=== PATIENT | female | born 1965 | race Caucasian/White ===

== ENCOUNTER → 2023-08-17 11:22 | Outpatient (CLI) | payer MEDICAID, SELFPAY ==
--- NOTE | 2023-08-17 15:15 | DI.RAD_ITS ---
Exam(s) XR SHOULDER LT COMPLETE 2+V EXAM: XR SHOULDER LT COMPLETE 2+V CLINICAL HISTORY: fall, neck pain W19.XXXA. TECHNIQUE: 2D digital imaging was performed. COMPARISON: No exams were available for comparison FINDINGS: Five views. No evidence of fracture or dislocation nor diminution of the subacromial space. No abnormal soft tis timmy calcifications. No degenerative changes. Bone density normal. No osseous lesions. Ipsilateral clavicle appears intact. IMPRESSION: No significant osseous findings in the left shoulder. DATA REPOSITORY: RADIATION DOSE DELIVERED:
--- NOTE | 2023-08-17 15:15 | DI.RAD_ITS ---
Exam(s) XR CERVICAL SPINE COMP 4-5V EXAM: XR CERVICAL SPINE COMP 4-5V CLINICAL HISTORY: neck pain, fall Z19.XXXA FALL. TECHNIQUE: 2D digital imaging was performed. COMPARISON: No exams were available for comparison FINDINGS: Six views. No evidence of fracture, listhesis, nor offset of the spinal laminar line. There is multilevel disc space narrowing at C4-5, C5-6, and C6-7 levels. Mild facet joint degenerative changes. No facet mal alignment. On the lateral view there is a triangular osteophytic density off the posterior aspect of the C7 spin ous process which measures 10 x 6 mm, difficult to determine acute gamaliel-geomorphology teacher's fracture versus is chronic finding at this level in the supraspinous ligament. There are no cervical ribs. IMPRESSION: Multilevel chronic degenerative disc disease. 10 x 6 mm osteophytic density seen posteriorly, posterior to the spinous process of C7. Either gamaliel- geomorphology teacher's fracture or chronic calcification in the supraspinous ligament at this level. Correlation with site of tenderness is recommended. DATA REPOSITORY: RADIATION DOSE DELIVERED:
--- NOTE | 2023-08-17 15:15 | DI.RAD_ITS ---
Exam(s) XR FINGER RT LITTLE EXAM: XR FINGER RT LITTLE CLINICAL HISTORY: finger pain, base of digit W19.XXXA FALL. TECHNIQUE: 2D digital imaging was performed. COMPARISON: No exams were available for comparison FINDINGS: 3 views No evidence of acute fracture nor dislocation of the 5th finger. No radiopaque foreign body. No deg enerative changes in the finger. Degenerative changes are noted at the 1st carpometacarpal joint and 2nd carpometacarpal joint. There is no radiopaque foreign body IMPRESSION: No acute fractures in the right hand. Degenerative changes at the 1st and 2nd carpometacarpal joints incidentally noted. DATA REPOSITORY: RADIATION DOSE DELIVERED:
== END ==
PROVIDERS: Visit Provider Physician Assistant
DX: M79.644 Pain in right finger(s) (principal); M25.512 Pain in left shoulder; M54.2 Cervicalgia; M47.812 Spondylosis without myelopathy or radiculopathy, cervical region; M18.11 Unilateral primary osteoarthritis of first carpometacarpal joint, right hand; Z91.81 History of falling
CPT/HCPCS: 72050; 73030; 73140

== ENCOUNTER 2023-08-17 20:32 | Emergency (ER) | payer MEDICAID, SELFPAY ==
--- NOTE | 2023-08-17 20:30 | DI.CT_ITS ---
Exam(s) CT CERVICAL SPINE WO EXAM: CT CERVICAL SPINE WO CLINICAL HISTORY: xray findings. TECHNIQUE: Imaging Protocol: Axial computed tomography images with coronal and sagittal reformatted images were created and reviewed CONTRAST MATERIAL: Noncontrast COMPARISON: CR XR CERVICAL SPINE COMP 4-5V from 08/17/2023 FINDINGS: Bones: No fracture or dislocations are seen. The alignment of the cervical spine is normal including the cervicovertebral junction and cervicothoracic junction. Severe degenerative changes at C5-6 and C6-7 cause significant narrowing of the AP dimension of the central canal. There is also neural for aminal narrowing. Degenerative changes also seen at C1-2. The density posterior to the the spinous process of C7 appears chronic. Soft Tissues: The soft tissues of the neck are unremarkable. No large disk herniations are identified . The visualized portions of the lung apices are clear. No pneumothorax is seen. IMPRESSION: Severe degenerative changes with central canal stenosis at C5-6 and C6-7. No acute abnormality. RADIATION DOSE DELIVERED: [facility] DATA REPOSITORY: All CT scans at this facility are submitted to the National Radiology Data Registry (NRDR) Dose Index Registry (DIR) with the [employer] ([employer]). RADIATION OPTIMIZATION: All CT scans at this facility use at least one of these dose optimization te chniques: automated exposure control; mA and/or kV adjustment per patient size (includes targeted exa ms where dose is matched to clinical indication); or iterative reconstruction.
[2023-08-17 20:33] VITALS: BP 130/108; PULSE 93; RESP 16; TEMP 36.3; O2SAT 97
--- NOTE | 2023-08-17 21:19 | DI.VRAD_ITS ---
PROCEDURE INFORMATION: Exam: CT Cervical Spine Without Contrast Exam date and time: 08/17/2023 8:45 PM Age: 57 years old Clinical indication: Injury or trauma and abnormal findings; Abnormal xray or scan of neck and cervical spine; Blunt trauma; Injury date: 08/15/23; Injury details: Fall x weds; Additional info: Xray findings TECHNIQUE: Imaging protocol: Computed tomography of the cervical spine without contrast. COMPARISON: CR XR CERVICAL SPINE COMP 4-5V 08/17/2023 3:38 PM FINDINGS: Bones/joints: No acute fracture of the cervical spine. No subluxation or dislocation of the cervical spine. Intervertebral disc space narrowing C5 through C7 may represent degenerative disc disease.. Anterior osteophyte formation C4 through C7. Posterior osteophyte formation C4 through C7. Degenerative changes in the facets at multiple levels. Degenerative changes at C1/C2 Posterior osteophyte formation along the cervical spine results in narrowing of the spinal canal to less than 10 mm consistent with spinal stenosis. Lungs: Lung apices are normal. Thyroid: The thyroid is unremarkable Soft tissues: Unremarkable. IMPRESSION: 1. No acute fracture of the cervical spine. 2. No subluxation or dislocation of the cervical spine. 3. Intervertebral disc space narrowing C5 through C7 may represent degenerative disc disease.. 4 Posterior osteophyte formation along the cervical spine results in narrowing of the spinal canal to less than 10 mm consistent with spinal stenosis. Dictated and Authenticated by: Barrera Katz MD. Ordering:VANESSA Dumont MD
--- NOTE | 2023-08-17 21:32 | ED.GENADUL_ITS ---
Discharge Plan Disposition Patient Disposition: Home Condition: Stable Discharge Details Clinical Impression: Cervical spinal stenosis Primary Care Provider: Unknown,Unknown ED Provider: Julia Worley Home Meds and New Rx's Prescriptions: Continued sertraline 100 mg tablet 100 mg PO DAILY dexlansoprazole [Dexilant] 60 mg capsule,biphase delayed releas 60 mg PO DAILY venlafaxine 225 mg tablet extended release 24hr 225 mg PO DAILY losartan 25 mg tablet 25 mg PO BID Discharge Instructions Instructions: Cervical Sprain (ED) Additional Instructions: Continue to use heat or ice for comfort Take ibuprofen and/or acetaminophen as directed Follow-up with your primary care provider Referrals: Unknown,Unknown [Primary Care Provider] - Medical Decision Making xray cspine IMPRESSION: Multilevel chronic degenerative disc disease. 10 x 6 mm osteophytic density seen posteriorly, posterior to the spinous process of C7. Either gamaliel-stock preparation operator's fracture or chronic calcification in the supraspinous ligament at this level. Correlation with site of tenderness is recommended. C-collar was applied by nursing staff. Patient has no neurovascular findings. CT of the cervical spine obtained and shows no acute fracture. She is stable for discharge to home to continue supportive care and symptom management C-collar removed prior to discharge Medical Records Medical records reviewed: Yes I reviewed the patient's medical records. Imaging Data Radiologic Study: Imaging: CT Scan Radiologist's impression: Exam(s) PROCEDURE INFORMATION: Exam: CT Cervical Spine Without Contrast Exam date and time: 08/17/2023 8:45 PM Age: 57 years old Clinical indication: Injury or trauma and abnormal findings; Abnormal xray or scan of neck and cervical spine; Blunt trauma; Injury date: 08/15/23; Injury details: Fall x weds; Additional info: Xray findings TECHNIQUE: Imaging protocol: Computed tomography of the cervical spine without contrast. COMPARISON: CR XR CERVICAL SPINE COMP 4-5V 08/17/2023 3:38 PM FINDINGS: Bones/joints: No acute fracture of the cervical spine. No subluxation or dislocation of the cervical spine. Intervertebral disc space narrowing C5 through C7 may represent degenerative disc disease.. Anterior osteophyte formation C4 through C7. Posterior osteophyte formation C4 through C7. Degenerative changes in the facets at multiple levels. Degenerative changes at C1/C2 Posterior osteophyte formation along the cervical spine results in narrowing of the spinal canal to less than 10 mm consistent with spinal stenosis. Lungs: Lung apices are normal. Thyroid: The thyroid is unremarkable Soft tissues: Unremarkable. IMPRESSION: 1. No acute fracture of the cervical spine. 2. No subluxation or dislocation of the cervical spine. 3. Intervertebral disc space narrowing C5 through C7 may represent degenerative disc disease.. 4 Posterior osteophyte formation along the cervical spine results in narrowing of the spinal canal to less than 10 mm consistent with spinal stenosis. Dictated and Authenticated by: Barrera Katz MD. Ordering:VANESSA Dumont MD [facility] General Mode of arrival: ambulatory . Date/Time Provider Initiated Documentation: 08/17/23 20:33 . Limitations to Documentation: no limitations . Information obtained by: patient . HPI Narrative: This is a 57-year-old female patient who suffered a mechanical fall on Sunday. She states that due to persistent discomfort in her neck and some intermittent numbness and tingling in her right thumb area she presented to the urgent care center where she had outpatient x-rays ordered. X-ray of the cervical spine showed multilevel chronic degenerative disc disease with a 10 x 6 mm osteophytic density posteriorly of spinous process C7. She was referred here for CT imaging to further characterize. Related Data Home Medications Medication Instructions Recorded Confirmed dexlansoprazole 60 mg 60 mg PO DAILY 08/17/23 capsule,biphase delayed release (Dexilant) losartan 25 mg tablet 25 mg PO BID 08/17/23 sertraline 100 mg tablet 100 mg PO DAILY 08/17/23 venlafaxine 225 mg tablet,extended 225 mg PO DAILY 08/17/23 release 24 hr Allergies Allergy/AdvReac Type Severity Reaction Status Date / Time codeine Allergy Verified 08/17/23 14:33 Sulfa (Sulfonamide Allergy Verified 08/17/23 14:33 Antibiotics) General Stated Complaint: Orthopedic IGNACIA: 3 Review of Systems All systems reviewed & are unremarkable except as noted in HPI and below PFSH All Active Problems (Updated 08/17/23 @ 21:38 by Julia Worley, MARKET RESEARCH MANAGER) Cervical spinal stenosis (Acute) Social History Smoking risk assessment performed?: No Exam Const General: cooperative, comfortable and no acute distress Nutritional Appearance: overweight Orientation: alert, awake and oriented x3 HENMT Head: normal to inspection, normocephalic and atraumatic Mouth: oral mucosae normal Neck Neck: normal visual inspection and tender (Right lateral, no step-off, bruising or obvious sign of trauma) Chest Chest: normal inspection of the chest Resp Effort & Inspection: normal respiratory effort Cardio Rate: regular rate Rhythm: regular rhythm Neuro General: patient alert, patient awake and patient oriented x3 Motor: muscle tone normal throughout, strength 5/5 throughout and normal tone Sensory Exam: no sensory deficits noted Extrem General: normal to inspection and full ROM Right upper extremity: normal to inspection and full ROM Left upper extremity: normal to inspection and full ROM Course Vital Signs Vital signs: Vital Signs Temperature 36.3 C L 08/17/23 20:33 Pulse 93 H 08/17/23 20:33 Respiratory Rate 16 08/17/23 20:33 Blood Pressure 130/108 H 08/17/23 20:33 Pulse Oximetry 97 08/17/23 20:33 Temperature 36.3 C L 08/17/23 20:33 Pulse 93 H 08/17/23 20:33 Respiratory Rate 16 08/17/23 20:33 Respiratory Effort Normal 08/17/23 20:38 Blood Pressure 130/108 H 08/17/23 20:33 Pulse Oximetry 97 08/17/23 20:33 Pain Level 5 08/17/23 20:33
== END 2023-08-17 21:42 | disposition home or self-care (01) ==
PROVIDERS: Emergency Provider Nurse Practitioner Acute Care
DX: M50.323 Other cervical disc degeneration at C6-C7 level (principal); M48.02 Spinal stenosis, cervical region; W18.30XA Fall on same level, unspecified, initial encounter
CPT/HCPCS: 99284; 72125; 99283

== ENCOUNTER → 2024-06-08 13:16 | Emergency (ER) | payer MEDICAID, SELFPAY | END | disposition left against medical advice (07) | LOC: ER 13:31 → RED 15:36 | DX: Z53.21 Procedure and treatment not carried out due to patient leaving prior to being seen by health care provider (principal) ==